=== PATIENT | male | born 1955 | race African-American/Black ===

== ENCOUNTER 2023-12-26 22:40 | Emergency (ER) | payer MEDICARE, MEDICAID, SELFPAY ==
--- NOTE | ~2023-12-26 | CT_ITS ---
CT ANGIOGRAM NECK AND HEAD History: Neurologic symptoms. Technique: Axial noncontrast imaging of the brain was performed. Serial spiral axial images through t he head and neck were then obtained during arterial phase IV injection of 100 cc of Omnipaque 350. 3- D postprocessing and MIP images were then reconstructed on the remote workstation. Dose reduction brian hnique was used on this scan by utilizing automated exposure control and iterative reconstruction brian hnique. The dose-length product (DLP) was 1936.91 mGy-cm. CTA neck findings: Bilateral vertebral arteries are patent. Bilateral common carotid, internal carot id, and external carotid arteries are patent. No large vessel occlusion. No stenosis or aneurysm. The re is calcified plaque at the origin of the right internal carotid artery, without stenosis. The prox imal right internal carotid artery demonstrates 0% stenosis relative to the normal distal artery lume n diameter. The proximal left internal carotid artery demonstrates 0% stenosis relative to the normal distal artery lumen diameter. CTA head findings: Distal vertebral arteries, basilar artery, and posterior cerebral arteries are pat ent. Distal internal carotid arteries, middle cerebral arteries, and anterior cerebral arteries are p atent. No large vessel occlusion. There are atherosclerotic calcifications with areas of moderate jaylen nosis involving the cavernous portions of the bilateral distal internal carotid arteries. No other st enoses evident. No aneurysm. Axial noncontrast imaging of the brain is essentially unremarkable. No acute infarct, intracranial he morrhage, or mass lesion. Guevara-white differentiation is preserved. Ventricles and subarachnoid spaces are unremarkable. No mass effect or midline shift. Paranasal sinuses and mastoid air cells are clear . Impression: Areas of moderate stenosis in the cavernous portions of the distal bilateral internal carotid arterie s related to atherosclerotic calcifications. No other stenosis identified. No large vessel occlusion or aneurysm. Reviewed, dictated and finalized at location M. [facility] Impression: Areas of moderate stenosis in the cavernous portions of the distal bilateral in ternal carotid arteries related to atherosclerotic calcifications. No other stenosis identified. No large vessel occlusion or aneurysm.
[2023-12-26 22:39] VITALS: BP 95/58; PULSE 80; RESP 20; TEMP 37.1; O2SAT 97
--- NOTE | 2023-12-26 22:53 | ECG_ITS ---
Measurements Intervals [place] Rate: 81 P: TX: 0 QRS: 189 QRSD: 218 T: 61 QT: 468 QTc: 544 Interpretive Statements ELECTRONIC VENTRICULAR PACEMAKER VENTRICULAR PREMATURE COMPLEX BASELINE ARTIFACT- I, II, III, AVL NO FURTHER INTERPRETATION IS POSSIBLE ATYPICAL ECG NO PREVIOUS ECG AVAILABLE FOR COMPARISON Electronically Signed On 12-27-2023 6:29:26 [employer] by Galen Saba D.O.
[2023-12-26 22:59] VITALS: BP 100/54; PULSE 79; RESP 14; O2SAT 99
[2023-12-26 23:21] LABS: Basophils Absolute Auto 0.2 K/mm3 (0.0-0.1); Basophils Percent Auto 1.4 % (0.2-1.2); Eosinophils Absolute Auto 0.2 K/mm3 (0-0.3); Eosinophils Percent Auto 2.1 % (0-4.4); Hemoglobin 8.6 g/dL (14.0-18.0); Immature Granulocyte Absolute 0.07 K/mm3 (0.00-0.031); Immature Granulocyte Percent A 0.6 % (0-0.5); Lymphocytes Absolute Auto 1.26 K/mm3 (0.9-3.2); Lymphocytes Percent Auto 11.4 % (18.3-44.2); Mean Corpuscular HGB Conc 30.7 g/dl (32-36); Mean Corpuscular Hemoglobin 25.6 pg (26-34); Mean Corpuscular Volume 83.3 fl (80-100); Mean Platelet Volume 9.1 fl (7.4-10.4); Monocytes Absolute Auto 0.9 K/mm3 (0.1-0.6); Monocytes Percent Auto 8.4 % (2.6-8.5); Neutrophils Absolute Auto 8.4 K/mm3 (1.3-6.7); Neutrophils Percent Auto 76.1 % (45.5-73.1); Platelet Count Result 402 k/mm3 (150-375); Red Blood Count 3.36 M/mm3 (4.6-6.20); Red Cell Distribution Width 17.8 % (11.5-14.5); White Blood Count 11.1 K/mm3 (4.5-10.0)
--- NOTE | 2023-12-26 23:23 | ED.GENADULT ---
HPI - General Adult General Chief complaint: Neuro Symptoms/Deficit Stated complaint: visual disturbances and granados since this am Time Seen by Provider: 12/26/23 22:56 History of Present Illness HPI narrative: Patient is a 68-year-old male who presents to the emergency department this complaining of changes in vision which started approximately 12 hours ago. Patient admits that he has been dealing with this intermittently for a long, stating that sometimes he will see some haziness that he describes as a spider web in his vision and that this usually occurs in his left eye and goes away on its own. Patient states that today the same thing happened on his right eye that did not go away. Patient also states that he has been having a mild headache all day and the combination of these 2 symptoms prompted him to come to the emergency department for further evaluation. Patient denies any additional symptoms including any focal weak, numbness and or tingling. He denies any sudden worse headache of his life sensation, denies any chest pain, shortness of breath, dizziness or lightheadedness. Patient wears glasses and states that his last eye appointment was approximately 2-3 years ago and it was normal. There are no other modifying, alleviating, or precipitating factors at this time. Related Data Home Medications Medication Instructions Recorded Confirmed Acidophilus 12/26/23 B Complex-Vitamin B12 12/26/23 Baby Vitamin D3 12/26/23 Colace 12/26/23 Eliquis 12/26/23 Humalog Pen 12/26/23 Jardiance 12/26/23 Kal 12/26/23 Lantus U-100 Insulin 12/26/23 Lasix 12/26/23 ProAir HFA 12/26/23 Zofran ODT 12/26/23 Zyrtec 12/26/23 acetaminophen 325 mg tablet mg 12/26/23 aspirin 81 mg chewable tablet 12/26/23 bupropion HCl 200 mg tablet,12 hr mg PO 12/26/23 sustained-release carvedilol 3.125 mg tablet (Coreg) mg 12/26/23 diclofenac sodium 1 % topical gel topical 12/26/23 emollient applic topical 12/26/23 escitalopram oxalate 10 mg tablet mg 12/26/23 (Lexapro) famotidine 20 mg tablet (Pepcid) mg 12/26/23 finasteride 12/26/23 gabapentin 100 mg capsule 100 mg PO TID 12/26/23 ipratropium 0.5 mg-albuterol 3 mg ml inhalation 12/26/23 (2.5 mg base)/3 mL nebulization soln metformin 500 mg tablet mg 12/26/23 midodrine 12/26/23 montelukast 12/26/23 multivitamin tablet 12/26/23 nystatin 1 billion unit oral powder unit PO 12/26/23 sacubitril 24 mg-valsartan 26 mg tablet 12/26/23 tablet (Entresto) tamsulosin 12/26/23 tramadol 12/26/23 Allergies Allergy/AdvReac Type Severity Reaction Status Date / Time No Known Allergies Allergy Verified 12/26/23 23:03 Review of Systems Review of Systems: All systems are reviewed and are negative unless stated otherwise in the HPI. PMFSH Comments Past medical history significant for diabetes, patient denies any significant family history, denies any tobacco use, alcohol abuse, or illicit drug use. Exam Narrative: General: Alert, awake, afebrile, in no acute distress. HEENT: PERRL, no rhinorrhea, no post nasal drip, oropharynx clear, intact extraocular movements with no pain with movements. Neck: Trachea midline, no JVD, no lymphadenopathy. Cardiovascular: Regular rate and rhythm, no murmurs, rubs or gallops, no peripheral edema. Respiratory: Clear to auscultation bilaterally, no tachypnea, no wheezing, no rhonchi, no rubs, no respiratory distress. Abdomen: Soft, nontender, nondistended, no rebound, no guarding, no peritoneal signs. Musculoskeletal: No joint swelling or deformity, normal muscle tone. Skin: No rashes or petechia, no signs of infection, chronic bilateral lower extremity skin changes likely secondary to venous stasis. Psychiatric: Alert and oriented, normal behavior and judgment for situation. Neurological: Alert and oriented to person, place, and time. Follows all commands. No focal deficits, speech is clear and fluent. Course Teresa
[2023-12-26 23:31] LABS: Alanine Aminotransferase 21 U/L (6-50); Albumin Level 3.4 g/dL (3.5-5.1); Alkaline Phosphatase 63 U/L (38-126); Anion Gap 4 mmol/L (8-16); Aspartate Amino Transferase 35 U/L (17-59); Bilirubin,Total 0.4 mg/dL (0.2-1.3); Blood Urea Nitrogen 26 mg/dL (9-20); Carbon Dioxide 28 mmol/L (22-30); Chloride 104 mmol/L (98-107); Estimated CRCL calculation 96 ml/min; Estimated Glomerular Filt Rate > 60; Glucose 164 mg/dL (65-110); Lactic Acid Reflex 1.4 mmol/L (0.7-2.0); Potassium 4.3 mmol/L (3.4-5.0); Sodium 136 mmol/L (137-145)
[2023-12-26 23:32] LABS: INR 1.2; Partial Thromboplastin Time 33.7 SECONDS (22.3-36.8); Prothrombin Time 15.5 Seconds (11.1-14.7)
[2023-12-26 23:47] VITALS: BP 102/47; PULSE 81; RESP 15; O2SAT 99
[2023-12-27 00:30] LABS: Appearance Urine Turbid (Clear); Bacteria Urine 4+ /hpf; Bilirubin Urine Negative (Negative); Blood Urine 2+ (Negative); Color Urine Yellow (Yellow); Glucose Urine UA 3+ mg/dL (Negative); Ketones Urine Negative (Negative); Leukocyte Esterase Ur 2+ LEU/UL (Negative); Need Manual Microscopic Reviewed; Nitrate Urine Positive (Negative); Non Pathogenic Casts >20; Protein Urine Trace mg/dL (Negative); Specific Grav Ur 1.016 (1.001-1.035); Squamous Epithelial Cell Urine Occasional /hpf (Few); Urobilinogen Urine 0.2 mg/dL (<2.0); WBC Urine >100 /hpf; pH Urine 7.5 (5.0-9.0)
[2023-12-27 00:33] LABS: Add Urine Microscopic? YES
[2023-12-27 02:12] VITALS: BP 101/51; PULSE 79; RESP 22; O2SAT 100
== END 2023-12-27 03:25 ==
LOC: ANHED 12-27 02:09
PROVIDERS: Emergency Provider Emergency Medicine; PCP Family Medicine
DX: H43.393 Other vitreous opacities, bilateral (principal); N39.0 Urinary tract infection, site not specified; E11.9 Type 2 diabetes mellitus without complications; Z79.84 Long term (current) use of oral hypoglycemic drugs; Z79.82 Long term (current) use of aspirin; Z79.4 Long term (current) use of insulin; Z79.01 Long term (current) use of anticoagulants
CPT/HCPCS: 36415; 70496; 70498; 80053; 81001; 83605; 83735; 85025; 85610; 85730; 87077; 87086; 87088; 87186; 93005; 96365; 99284; J0696; Q9967

== ENCOUNTER 2024-04-23 21:15 | Emergency (ER) | payer MEDICARE, MEDICAID, SELFPAY ==
[2024-04-23 21:16] VITALS: BP 114/61; PULSE 79; RESP 18; TEMP 36.7; O2SAT 99
[2024-04-23 23:00] LABS: Appearance Urine Turbid (Clear); Bacteria Urine 4+ /hpf; Bilirubin Urine Negative (Negative); Blood Urine 3+ (Negative); Glucose Urine UA 1+ mg/dL (Negative); Ketones Urine Negative (Negative); Leukocyte Esterase Ur 2+ LEU/UL (Negative); Need Manual Microscopic Reviewed; Nitrate Urine Positive (Negative); Non Pathogenic Casts 0-2; Protein Urine 3+ mg/dL (Negative); RBC Urine >100 /hpf (0-2); Specific Grav Ur 1.027 (1.001-1.035); Squamous Epithelial Cell Urine Few /hpf (Few); WBC Urine >100 /hpf (0-3)
[2024-04-23 23:01] LABS: Add Urine Microscopic? YES; Color Urine Brown (Yellow)
--- NOTE | 2024-04-23 23:17 | ED.MALEGU ---
HPI - Male Genitourinary General Chief complaint: Urogenital-Male Stated complaint: Urinary clots Time Seen by Provider: 04/23/24 22:25 Source: patient Limitations: no limitations History of Present Illness HPI Narrative: Patient is a 68-year-old male presented emergency department accompanied by family for blood in his urine and feeling he has a urinary tract infection. Patient notes for the past couple weeks he has been feeling as a urinary tract infection with spasms when he retracts to urinate, has a chronic De Jesus catheter in place that has not been changed months and was told that it was low speed changed monthly and then they changed their minds, earlier today he noticed that there might be some blood in the urine that was clots and came in for further evaluation. Patient notes a he has been having low-grade fevers, denies nausea or vomiting or any baseline abdominal pains. Patient denies any recent injuries, recent antibiotic use, diarrhea. Related Data Home Medications Medication Instructions Recorded Confirmed Acidophilus 12/26/23 B Complex-Vitamin B12 12/26/23 Baby Vitamin D3 12/26/23 Colace 12/26/23 Eliquis 12/26/23 Humalog Pen 12/26/23 Jardiance 12/26/23 Kal 12/26/23 Lantus U-100 Insulin 12/26/23 Lasix 12/26/23 ProAir HFA 12/26/23 Zofran ODT 12/26/23 Zyrtec 12/26/23 acetaminophen 325 mg tablet mg 12/26/23 aspirin 81 mg chewable tablet 12/26/23 bupropion HCl 200 mg tablet,12 hr mg PO 12/26/23 sustained-release carvedilol 3.125 mg tablet (Coreg) mg 12/26/23 diclofenac sodium 1 % topical gel topical 12/26/23 emollient applic topical 12/26/23 escitalopram oxalate 10 mg tablet mg 12/26/23 (Lexapro) famotidine 20 mg tablet (Pepcid) mg 12/26/23 finasteride 12/26/23 gabapentin 100 mg capsule 100 mg PO TID 12/26/23 ipratropium 0.5 mg-albuterol 3 mg ml inhalation 12/26/23 (2.5 mg base)/3 mL nebulization soln metformin 500 mg tablet mg 12/26/23 midodrine 12/26/23 montelukast 12/26/23 multivitamin tablet 12/26/23 nystatin 1 billion unit oral powder unit PO 12/26/23 sacubitril 24 mg-valsartan 26 mg tablet 12/26/23 tablet (Entresto) tamsulosin 12/26/23 tramadol 12/26/23 Allergies Allergy/AdvReac Type Severity Reaction Status Date / Time No Known Allergies Allergy Verified 04/23/24 21:22 Review of Systems Review of Systems: A 10 system review of systems was completed on the patient and is negative except for what is stated in the HPI. Nursing and ancillary documentation was reviewed. PMFSH Comments At time of signature, I have reviewed and agree with nursing past medical, surgical, social and family history unless otherwise noted. Please see the nursing chart for further information. There is no relevant family history pertinent to the presenting complaint. Exam Narrative: CONST: No acute distress. Well nourished. Obese. HENMT: Head is normocephalic and atraumatic. Moist mucous membranes. No posterior oropharynx erythema. EYES: No conjunctival icterus, injection, or pallor. PERRL. NECK: No meningeal signs. RESP: Able to speak in full sentences. Normal respiratory effort. CTAB. CARDIO: Regular rate. Regular rhythm. 2+ DP and radial pulses bilaterally. GI: Nondistended. Soft. Mild tenderness palpation in the suprapubic region. No rebound or guarding or rigidity. : No CVA tenderness to palpation. De Jesus catheter in place draining artur colored urine. SKIN: No rashes or lesions noted on exposed skin. NEURO: Oriented x3. EXTREM/MSK/BACK: No pedal edema. PSYCH: Normal affect. Course Vital Signs Vital signs: Vital Signs Temperature 98.1 F 04/23/24 21:16 Pulse Rate 79 04/23/24 21:16 Respiratory Rate 18 04/23/24 21:16 Blood Pressure 114/61 04/23/24 21:16 Pulse Oximetry 99 04/23/24 21:16 Oxygen Delivery Room Air 04/23/24 21:16 Temperature 98.1 F 04/23/24 21:16 Pulse Rate 79 04/23/24 21:16 Re
[2024-04-23] MEDS: cefTRIAXone 2 GM/NS 100 ML 2 GM/100 ML BAG IVPB (23:20)
[2024-04-23 23:28] LABS: Basophils Absolute Auto 0.5 K/mm3 (0.0-0.1); Basophils Percent Auto 4.1 % (0.2-1.2); Eosinophils Absolute Auto 0.6 K/mm3 (0-0.3); Eosinophils Percent Auto 4.9 % (0-4.4); Hematocrit 38.6 % (42.0-52.0); Hemoglobin 12.4 g/dL (14.0-18.0); Immature Granulocyte Absolute 0.24 K/mm3 (0.00-0.031); Immature Granulocyte Percent A 1.9 % (0-0.5); Lymphocytes Absolute Auto 1.51 K/mm3 (0.9-3.2); Lymphocytes Percent Auto 11.7 % (18.3-44.2); Mean Corpuscular HGB Conc 32.1 g/dl (32-36); Mean Corpuscular Hemoglobin 28.4 pg (26-34); Mean Corpuscular Volume 88.3 fl (80-100); Mean Platelet Volume 8.7 fl (7.4-10.4); Monocytes Absolute Auto 1.1 K/mm3 (0.1-0.6); Monocytes Percent Auto 8.6 % (2.6-8.5); Neutrophils Absolute Auto 8.9 K/mm3 (1.3-6.7); Neutrophils Percent Auto 68.8 % (45.5-73.1); Platelet Count Result 346 k/mm3 (150-375); Red Blood Count 4.37 M/mm3 (4.6-6.20); Red Cell Distribution Width 17.4 % (11.5-14.5)
[2024-04-23 23:38] LABS: Alanine Aminotransferase 18 U/L (6-50); Albumin Level 3.9 g/dL (3.5-5.1); Alkaline Phosphatase 78 U/L (38-126); Anion Gap 4 mmol/L (4-12); Aspartate Amino Transferase 25 U/L (17-59); Bilirubin,Total 0.3 mg/dL (0.2-1.3); Blood Urea Nitrogen 20 mg/dL (9-20); Carbon Dioxide 30 mmol/L (22-30); Chloride 106 mmol/L (98-107); Estimated CRCL calculation 98 ml/min; Estimated Glomerular Filt Rate > 60; Glucose 143 mg/dL (65-110); Potassium 4.2 mmol/L (3.4-5.0); Sodium 140 mmol/L (137-145)
[2024-04-23 23:53] LABS: Platelet Estimate Adequate (Adequate)
[2024-04-23 23:54] LABS: Anisocytosis 2+; Hypochromasia 1+; Large Platelets Present; Schistocytes None Seen
[2024-04-24 00:33] VITALS: BP 104/86; PULSE 79; RESP 17; O2SAT 98
[2024-04-24] MEDS: ACETAMINOPHEN 500 MG TABLET 1000 MG PO (00:54)
== END 2024-04-24 03:15 ==
PROVIDERS: Emergency Medicine; Emergency Provider Student in an Organized Health Care Education/Training Program; PCP Family Medicine
DX: N30.01 Acute cystitis with hematuria (principal)
CPT/HCPCS: 36415; 51702; 80053; 81001; 85025; 87077; 87086; 87088; 87186; 96365; 99284; A9270; J0696